=== PATIENT | female | born 1955 | race Caucasian/White ===

== ENCOUNTER 2020-10-20 20:00 | Emergency (ER) | payer SELFPAY ==
[~2020-10-20] VITALS: Ht 149.9 cm; Wt 81.6 kg
[2020-10-20 20:18] VITALS: BP 166/80
[2020-10-20] MEDS ORDERED: ACETAMINOPHEN 325 MG TAB PO ONE (21:45)
== END 2020-10-20 22:54 | disposition home or self-care (01) ==
LOC: ER 20:00
DX: S52.572A Other intraarticular fracture of lower end of left radius, initial encounter for closed fracture (principal); W19.XXXA Unspecified fall, initial encounter; Y93.89 Activity, other specified; Y92.89 Other specified places as the place of occurrence of the external cause; Y99.8 Other external cause status
CPT/HCPCS: 29125; 73110; 73200

== ENCOUNTER 2023-11-21 15:08 | Emergency (ER) | payer OTHER ==
[~2023-11-21] VITALS: Ht 124.5 cm; Wt 77.2 kg
[2023-11-21 15:32] VITALS: BP 167/94; PULSE 87; RESP 18; TEMP 98.2; O2SAT 95
[2023-11-21] MEDS ORDERED: NIRM1TAB5 PO (15:51)
[2023-11-21] MEDS ORDERED: METH4PAK PO (15:51)
== END 2023-11-21 15:56 | disposition home or self-care (01) ==
LOC: ER 15:08
DX: U07.1 COVID-19 (principal); J45.909 Unspecified asthma, uncomplicated